=== PATIENT | male | born 1990 | race Caucasian/White ===

== ENCOUNTER 2016-11-10 15:00 | Emergency (ER) | payer SELFPAY ==
[~2016-11-10] VITALS: Ht 170.2 cm; Wt 97.6 kg
[~2016-11-10 15:00] MED LIST: NO ROUTINE MEDS
--- OUTSIDE RECORDS SUMMARY | 2016-11-10 15:04 | XMS REPORT | Continuity of Care Document ---
Author Author [facility] Organization [facility] Address Unknown Phone Unavailable Support Name Relationship Address Phone MAY, MARBELLA Lujan DO Caregiver [address] [place] [address] Unavailable IONA BURNS Next Of Kin [address] [place] [address] Insurance Providers Guarantor Bari Burns Iii Address [address] [place] [address] Email DENIED 16 Payer Self Pay Subscriber's Name Bari Burns Iii Relationship 18 Self Chief Complaint and Reason for Visit Chief Complaint Lower Extremity Pain Reason for Visit [id number] Problems Active Problems Medical Problem Onset Date Status ACL tear Unknown Meniscus tear Unknown Tear of MCL (medial collateral ligament) of knee Unknown Tibial plateau fracture, right Unknown Surgical Problem Onset Date Status S/P ACL repair Unknown Medications Current Home Medications Medication Dose Units Route Directions Days Qty Instructions Start Date No Routine Meds 07/18/16 Social History Social History Problem Response Recorded Date/Time Onset Date Status Chewing Tobacco Status No 07/18/2016 9:19pm Not Applicable Not Applicable Hx Substance Use No 07/18/2016 9:19pm Not Applicable Not Applicable Hx Alcohol Use No 07/18/2016 9:19pm Not Applicable Not Applicable Query Response Start Date Stop Date Smoking Status Former smoker Hospital Discharge Instructions No hospital discharge instructions. Plan of Care Discharge Date 07/18/16 10:59pm Disposition 01 DISCHARGED HOME, SELF-CARE Condition at Discharge Improved Instructions/Education Provided Meniscal Tear Prescriptions See Medication Section Referrals YOUR PHYSICIAN Order Date: 3 Days Note: Additional Instructions/Education You have a meniscus tear of your knee. You will need to follow up with your doctor for referral to PT. If symptoms do not improve, you may need an MRI and Ortho referral. Care Plan and Goals Physician Care Plan Problem: Meniscus tear Goal: Follow up with primary care provider Instructions: Take medications and follow care plan as discussed/written Functional Status No functional status results. Allergies, Adverse Reactions, Alerts No known allergies. Immunizations Query Response on File Recorded Date/Time Hx Tetanus Toxoid Vaccination Yes 07/18/16 9:22pm DTaP Vaccine History 2015 07/18/16 9:19pm Tdap Vaccine Hx 201407/18/16 9:22pm Vital Signs Acute Vital Signs Vital Response Date/Time Pulse Rate (adult) 62 bpm (60 - 100) 07/18/2016 10:59pm Respiratory Rate 16 breaths/min (10 - 20) 07/18/2016 10:59pm O2 Sat by Pulse Oximetry 96 % (90 - 100) 07/18/2016 10:59pm Blood Pressure 121/74 mm Hg 07/18/2016 10:59pm Results No known relevant diagnostic tests, laboratory data and/or discharge summary. Procedures No known history of procedures. Encounters Encounter Location Arrival/Admit Date Discharge/Depart Date Attending Provider Departed Emergency Room [facility] 07/18/16 7:43pm 07/18/16 10: 59pm MARBELLA BRUNER DO Recent Diagnosis
[2016-11-10 15:15] VITALS: Ht 170.2 cm; Wt 97.6 kg
--- NOTE | 2016-11-10 15:43 | NUR ---
PROVIDER DR. BRUNER AT BEDSIDE FOR EXAM.
--- NOTE | 2016-11-10 15:50 | ERPDOC ---
Departure Disposition Decision Date: November 10, 2016 Disposition Decision Time: 15:49 Disposition: 01 DISCHARGED HOME, SELF-CARE Impression Impression Impression: Primary Impression: Meniscus tear Severity: Mild Condition: Stable Seen By: Physician only Referrals: [facility] 3 Days Patient Instructions: Meniscus Tear (ED) Problems/Meds/Labs Reviewed?: Yes Medications reviewed and manag: Yes Additional Instructions: You have a meniscus tear. You need to follow up with a primary care doctor who can refer you to physical therapy and order a follow up MRI, if needed. If this does not get better with physical therapy, you will need to see an orthopedic surgeon. Follow up care ordered?: Yes Mental Status: Alert, Oriented HPI General Chief Complaint: Lower Extremity Pain Stated Complaint: RT KNEE PAIN Time Seen by Provider: 15:23 Source: patient Exam Limitations: no limitations HPI Knee Initial Comments 26yo man presents to the ER tonight with right knee pain. Pt was seen for knee pain several months ago and dx'ed with a medial meniscus tear. Has not followed up and has not had follow on treatment or evaluation. Now has pain with squatting, bending, and full extension of his leg over the medial compartment. Came tonight because he just can't deal with the pain anymore. Occurred At: home Onset: Gradual, Constant Duration: other Pain Scale: Now & Worst: 5/10 Severity: moderate Method of Injury: fell Modifying Factors: IMPROVES WITH: cold therapy, immobilization, rest, WORSENES WITH: jarring, movement, weight bearing Associated Symptoms: clicking, locking, popping, stiffness, swelling, unable to straighten Allergies: Coded Allergies: No Known Allergies (Unverified , 07/18/16) Past History Patient Medical History (1) ACL tear (2) Tear of MCL (medial collateral ligament) of knee (3) Tibial plateau fracture, right (4) Meniscus tear (5) S/P ACL repair Review of Systems Musculoskeletal General: joint pain All other Systems All Other Systems: Reviewed and Negative Exam General General Nourishment: well nourished, well developed, appears stated age, no acute distress, adult, obese General Body Habitus: well groomed Vital Signs: RN Vital Signs have been reviewed: Yes, Temperature: 97.8, Source : Oral, Heart Rate: 69, Respiratory Rate: 18, BP: 135/77, Pulse Oximetry: 99 Height (Feet): 5 Height (Inches): 7.00 [place]rak Knee Knee : Knee: Right Inspection: swelling, NOT FOUND: discoloration, erythema, pallor Palpation: warm, NOT FOUND: cool, tender lat. joint line, tender med. joint line, tender patella ROM: clicking, flexion to 0 degrees, popping, NOT FOUND: extension to 180 degrees Neuro: patellar tendon reflex, soft touch intact, strength Posterior Tibial pulse: 2+ Dorsalis Pedis pulse: 2+ Neurologic RN Documented GCS Eye Opening: Verbal: Motor: Total: Supervisory Exam Head: atraumatic Eyes: PERRL Nares: no exudate Neck: trachea midline Chest: symmetric Abdomen: non-distended Neurological: no abnormal movements Skin: pink, dry Psychological: alert, appropriate Differential Diagnoses Considering: Cartilage Tear, Contusion, Dislocation, Fracture, Meniscal Injury , Patellar Dislocation, Sprain, Strain Progress Progress Progress Pt with classic s/s of meniscus tear. Pt has not had f/u; has no insurance and no PCM. Discussed possible methods for obtaining treatment. Pt voiced understanding of dx, prognosis, tx, and need for f/u. MARBELLA BRUNER DO November 10, 2016 15:50
[2016-11-10 15:55] VITALS: BP 118/69; PULSE 67; RESP 18; TEMP 97.8; O2SAT 92
--- NOTE | 2016-11-10 15:55 | NUR ---
DISCHARGE WRITTEN INSTRUCTIONS REVIEWED AND SENT WITH PT. PT VERBALIZES UNDERSTANDING OF DI, DENIES QUESTIONS. PT AMBULATES OUT OF ER WITH STEADY GAIT ACCOMP BY SPOUSE AT THIS TIME.
== END 2016-11-10 15:55 | disposition home or self-care (01) ==
LOC: ED 15:00
DX: S83.241A Other tear of medial meniscus, current injury, right knee, initial encounter (principal); W19.XXXA Unspecified fall, initial encounter; Y93.9 Activity, unspecified; Y92.009 Unspecified place in unspecified non-institutional (private) residence as the place of occurrence of the external cause; Y99.8 Other external cause status